=== PATIENT | female | born 1955 | race Asian ===

== ENCOUNTER 2016-11-12 18:13 | Emergency (ER) | payer MEDICARE, OTHER ==
[~2016-11-12] VITALS: Ht 160 cm; Wt 52.5 kg
[2016-11-12 18:22] VITALS: BP 144/90
[2016-11-12] MEDS ORDERED: AMLO2.5T2 PO (18:31)
[2016-11-12] MEDS ORDERED: TELM80TA2 PO (18:31)
[2016-11-12] MEDS ORDERED: ASPI81TA2 PO (18:31)
[2016-11-12] MEDS ORDERED: AMLO-511 PO (18:33)
== END 2016-11-12 19:59 | disposition home or self-care (01) ==
LOC: EMS 18:14
DX: S09.93XA Unspecified injury of face, initial encounter (principal); K04.7 Periapical abscess without sinus; I10 Essential (primary) hypertension; Z79.82 Long term (current) use of aspirin; X58.XXXA Exposure to other specified factors, initial encounter; Y93.89 Activity, other specified; Y92.89 Other specified places as the place of occurrence of the external cause; Y99.8 Other external cause status
CPT/HCPCS: 99283

== ENCOUNTER 2017-10-06 17:20 | Emergency (ER) | payer OTHER ==
[~2017-10-06] VITALS: Ht 160 cm; Wt 53.2 kg
[~2017-10-06 17:20] MED LIST: AMLO-511 PO; ASPI81TA39 PO; TELM80TA2 PO
[2017-10-06] MEDS ORDERED: PredniSONE 20 MG TABLET PO ONE (19:30)
[2017-10-06] MEDS ORDERED: DiphenhydrAMINE HCL 25 MG CAPSULE PO ONE (19:30)
[2017-10-06 20:55] VITALS: BP 137/82
== END 2017-10-06 21:00 | disposition home or self-care (01) ==
LOC: EMS 17:21
DX: L50.9 Urticaria, unspecified (principal); I10 Essential (primary) hypertension
CPT/HCPCS: 99283; J7512

== ENCOUNTER → 2023-08-23 | Outpatient (CLI) | payer MEDICARE, OTHER ==
[~2023-08-23] MED LIST changes: +AMLO-257 PO; -AMLO-511 PO; +REGADENOSON 0.4 MG/5 ML PF SYRINGE IVP ONE; +SESTAMIBI TC99M/UD ISOTOPE 1 EA INJ INJ ONE
== END | disposition home or self-care (01) ==
LOC: CARDMN 08:33
PROVIDERS: ATTEND Internal Medicine Cardiovascular Disease
DX: R01.1 Cardiac murmur, unspecified (principal); I25.9 Chronic ischemic heart disease, unspecified
CPT/HCPCS: 78452; 93306; A9500; J2785